=== PATIENT | male | born 1945 | race Caucasian/White ===

== ENCOUNTER 2017-01-04 21:53 | Inpatient (IN) | payer MEDICARE, BC ==
[~2017-01-04 21:53] MED LIST: ACTIVASE50 MG IV; ADULT ASPIRIN81 MG PO; ADULT LOW DOSE81 M1 PO; ALDACTONE25 M1 PO; ALLOPURINOL100 M1 PO; ALLOPURINOL100 MG PO; AMIODARONE HCL200 M1 PO; AMIODARONE HCL400 M1 PO; AMLODIPINE BESY10 M1 PO; AMLODIPINE BESY10 MG PO; ASPIR 8181 M1 PO; ATORVASTATIN CA40 MG PO; BASLE60 GM TP; CALCITRIOL0.25 MCG PO; CALCITRIOL0.5 MC1 PO; CALCIUM ACETATE PO; CARVEDILOL25 M1 PO; CARVEDILOL25 MG PO; CARVEDILOL3.125 MG PO; CATAPRES-TTS 11 EACH TOP; CATAPRES-TTS 21 EACH TOP; CATAPRES-TTS 31 EACH TP; CATAPRES0.2 M1 PO; CATAPRES0.2 MG PO; CEFTRIAXONE1 GM IV; CELEBREX200 M1 PO; CELEBREX200 MG PO; CITALOPRAM HBR20 M1 PO; CLONIDINE HCL0.2 MG PO; CLONIDINE TD; COLACE100 M1 PO; COREG25 M1 PO; COUMADIN1 M1 PO; COUMADIN2.5 MG PO; COUMADIN4 M1 PO; COUMADIN5 M2 PO; COUMADIN6 M1 PO; CPAP INH; CRESTOR20 MG PO; CULTURELLE1 EAC1 PO; DOCUSATE SODIU100 M2 PO; DOCUSATE SODIU100 MG PO; DULCOLAX10 MG PR; DULCOLAX5 M1 PO; FISH OIL 1,0001 CA1 PO; FISH OIL 11000 MG/CA PO; FUROSEMIDE80 M1 PO; GLUCAGEN1 MG/1 ML IM; GLUCOSAMINE CH1 EAC2 PO; HEPARIN SC; HUMALOG100 UNITS/ SC; HYDRALAZINE HCL50 M1 PO; IPRAT-ALBUT 0.5-3 ML NEB; LANTUS SOL100 UNIT/1 SC; LANTUS SOLOSTAR3 ML SQ; LANTUS100 U/ML SC; LASIX40 M1 PO; LASIX40 MG PO; LASIX80 M1 PO; LASIX80 MG PO; LEVEMIR FL100 UNIT/2 SC; LEVEMIR100 UNITS/ SC; LIPITOR80 M1 PO; LISINOPRIL40 M1 PO; LISINOPRIL40 MG PO; LOVENOX30 MG/0.1 SC; MILK OF MAGNESIA PO; MIRALAX17 G2 PO; MIRALAX17 GM PO; MUPIROCIN22 G2 TOP; NORCO 5-325 TA1 EACH PO; NORVASC10 M2 PO; NOVOLIN R100 U/ML SQ; NOVOLOG FL100 UNIT/1 SQ; NOVOLOG FL100 UNIT/2 SC; NOVOLOG100 UNITS/; OMEPRAZOLE20 M4 PO; OMEPRAZOLE20 MG PO; PATCH REMOVAL; PHOSLO667 M1 PO; PREDNISONE10 M1 PO; PRILOSEC20 M1 PO; ROCALTROL0.5 MC2 PO; ROXICODONE5 M2 PO; SENOKOT-S TABL1 EACH PO; SODIUM BICARBO650 M1 PO; SODIUM CHLORIDE IV; SODIUM CHLORIDE10 M2 IV; SPIRONOLACTONE25 M1 PO; TRAMADOL HCL50 M2 PO; TYLENOL325 M2 PO; TYLENOL325 MG PO; ULTRAM50 M1 PO; ULTRAM50 MG PO; VANCO 1.51.5 GM/250 IV; VITAMIN B PO; VITAMIN D250000 UNI1 PO; VITAMIN D31000 UNI4 PO; VITAMIN D31000 UNIT PO; WARFARIN SODIUM5 MG PO; ZESTRIL40 M2 PO; ZYLOPRIM300 M1 PO; [UNRECOGNIZED DRUG - OTHER] PO
[2017-01-04] MEDS ORDERED: COUMADIN1 M1 PO (22:49)
[2017-01-04] MEDS ORDERED: COUMADIN6 M1 PO (22:49)
[2017-01-04] MEDS ORDERED: HYDRALAZINE HCL50 M1 PO (22:55)
[2017-01-04] MEDS ORDERED: ULTRAM50 M1 PO (22:56)
[2017-01-04] MEDS ORDERED: SYMBICORT 160-1 PUFF INH (23:15)
[2017-01-05 00:52] LABS: INR 1.7 INR (0.9-1.1); PROTHROMBIN TIME 19.8 SECONDS (9.0-13.6)
[2017-01-05 06:10] LABS: ANION GAP 13 mmol/L (0-20); BLOOD UREA NITROGEN 47 mg/dl (6-24); CALCIUM 8.3 mg/dl (8.5-10.5); CARBON DIOXIDE-VENOUS 25 mmol/L (22-32); CHLORIDE 108 mmol/l (96-110); CHOLESTEROL 94 mg/dl (120-200); CREATININE 3.91 mg/dl (0.60-1.30); GLUCOSE 135 mg/dL (70-110); HDL CHOLESTEROL 34 mg/dl (40-60); LDL CHOLESTEROL 41 mg/dl (0-99); MAGNESIUM 2.2 mg/dl (1.3-2.6); POTASSIUM 3.5 mmol/L (3.7-5.1); SODIUM 142 mmol/L (135-145); TRIGLYCERIDES 99 mg/dl (<149); VLDL 20 mg/dl (0-30); eGFR VALUE FOR BLACK 17 mL/Min
[2017-01-05 06:12] LABS: URINE LEUKOCYTE ESTERASE NEGATIVE (NEG); URINE PROTEIN LARGE (NEG)
[2017-01-05 06:25] LABS: URINE APPEARANCE CLEAR; URINE BILIRUBIN NEGATIVE (NEG); URINE BLOOD LARGE (NEG); URINE COLOR YELLOW; URINE GLUCOSE (UA) MODERATE (NEG); URINE KETONE NEGATIVE (NEG); URINE NITRITE NEGATIVE (NEG)
[2017-01-05 07:04] LABS: URINE WBC 0 /[HPF] (0-5)
[2017-01-05 07:05] LABS: URINE EPITHELIAL CELLS 0-1 /[HPF] (0-10)
[2017-01-06 06:00] LABS: INR 1.9 INR (0.9-1.1); PROTHROMBIN TIME 21.9 SECONDS (9.0-13.6)
[2017-01-06 06:20] LABS: ANION GAP 13 mmol/L (0-20); BLOOD UREA NITROGEN 47 mg/dl (6-24); CALCIUM 8.2 mg/dl (8.5-10.5); CARBON DIOXIDE-VENOUS 26 mmol/L (22-32); CHLORIDE 106 mmol/l (96-110); CREATININE 4.05 mg/dl (0.60-1.30); FERRITIN 41 ng/ml (22-388); GLUCOSE 74 mg/dL (70-110); PHOSPHOROUS 3.8 mg/dl (2.5-4.9); POTASSIUM 3.5 mmol/L (3.7-5.1); SODIUM 141 mmol/L (135-145); eGFR VALUE FOR BLACK 16 mL/Min
[2017-01-06 06:25] LABS: IRON 32 ug/dl (49-181); IRON BINDING CAPACITY 274 ug/dl (250-450)
[2017-01-06 10:34] LABS: URINE PRT/CR RATIO 13.57 Ratio (0.0-0.20); URINE TOTAL PROTEIN-RANDOM 393.8 mg/dl (<11.8)
[2017-01-07 05:00] LABS: INR 1.9 INR (0.9-1.1); PROTHROMBIN TIME 22.8 SECONDS (9.0-13.6)
[2017-01-07 06:03] LABS: CHLORIDE 107 mmol/l (96-110); POTASSIUM 3.5 mmol/L (3.7-5.1); SODIUM 143 mmol/L (135-145)
[2017-01-07 06:08] LABS: ANION GAP 16 mmol/L (0-20); BLOOD UREA NITROGEN 45 mg/dl (6-24); CALCIUM 8.2 mg/dl (8.5-10.5); CARBON DIOXIDE-VENOUS 24 mmol/L (22-32); CREATININE 4.09 mg/dl (0.60-1.30); GLUCOSE 84 mg/dL (70-110); eGFR VALUE FOR BLACK 16 mL/Min
[2017-01-08 05:56] LABS: PROTHROMBIN TIME 23.6 SECONDS (9.0-13.6)
[2017-01-08 06:06] LABS: ALBUMIN 2.5 g/dl (3.5-5.0); ANION GAP 12 mmol/L (0-20); BLOOD UREA NITROGEN 45 mg/dl (6-24); CALCIUM 8.3 mg/dl (8.5-10.5); CARBON DIOXIDE-VENOUS 27 mmol/L (22-32); CHLORIDE 108 mmol/l (96-110); CREATININE 4.05 mg/dl (0.60-1.30); GLUCOSE 96 mg/dL (70-110); PHOSPHOROUS 3.9 mg/dl (2.5-4.9); POTASSIUM 4.2 mmol/L (3.7-5.1); SODIUM 143 mmol/L (135-145); eGFR VALUE FOR BLACK 16 mL/Min
[2017-01-08] MEDS ORDERED: DULERA 200 MCG/13 G1 INH (10:18)
[2017-01-08] MEDS ORDERED: NORVASC10 M2 PO (10:20)
[2017-01-08] MEDS ORDERED: ASPIRIN EC81 MG PO (10:21)
[2017-01-08] MEDS ORDERED: LASIX80 M1 PO (10:24)
[2017-01-08] MEDS ORDERED: ISOSORBIDE MONO30 M4 PO (10:47)
== END 2017-01-08 11:45 | DRG 291 ==
LOC: PCUB 21:53
PROVIDERS: Internal Medicine Nephrology; Nurse Practitioner Family; ADMIT Internal Medicine Cardiovascular Disease
DX: I13.0 Hypertensive heart and chronic kidney disease with heart failure and stage 1 through stage 4 chronic kidney disease, or unspecified chronic kidney disease (principal); I50.43 Acute on chronic combined systolic (congestive) and diastolic (congestive) heart failure; N17.9 Acute kidney failure, unspecified; E11.21 Type 2 diabetes mellitus with diabetic nephropathy; I42.9 Cardiomyopathy, unspecified; Z68.41 Body mass index [BMI] 40.0-44.9, adult; N18.4 Chronic kidney disease, stage 4 (severe); I48.0 Paroxysmal atrial fibrillation; E78.5 Hyperlipidemia, unspecified; E11.22 Type 2 diabetes mellitus with diabetic chronic kidney disease; G47.33 Obstructive sleep apnea (adult) (pediatric); Z95.0 Presence of cardiac pacemaker; I25.10 Atherosclerotic heart disease of native coronary artery without angina pectoris; Z79.4 Long term (current) use of insulin; Z79.02 Long term (current) use of antithrombotics/antiplatelets; I87.8 Other specified disorders of veins; M19.90 Unspecified osteoarthritis, unspecified site; E66.01 Morbid (severe) obesity due to excess calories; D63.1 Anemia in chronic kidney disease; Z79.01 Long term (current) use of anticoagulants; E83.39 Other disorders of phosphorus metabolism
CPT/HCPCS: J0360; J1756; J1815; J1940